=== PATIENT | female | born 2000 | race Caucasian/White ===

== ENCOUNTER 2018-01-09 10:44 | Emergency (ER) | payer BC ==
[2018-01-09 11:11] VITALS: BP 122/88
[2018-01-09] MEDS ORDERED: Ciprofloxacin 500 MG Tab ONE (11:20)
--- NOTE | 2018-01-09 11:35 | EDM.PDOC ---
ED HPI GENERAL MEDICAL PROBLEM - General Chief Complaint: General Stated Complaint: Possible UTI Time Seen by Provider: 01/09/18 11:05 Source of Information: Reports: Patient, Family History Limitations: Reports: No Limitations - History of Present Illness INITIAL COMMENTS - FREE TEXT/NARRATIVE: Patient is a 17 year old woman who started having burning, frequency and urgency with some lower abdominal pain yesterday that has persisted until today. It has gotten better drinking a lot of cranberry juice. No fever or chills, nausea or vomiting and no other complaints. Onset: Gradual Onset Date: 01/08/18 Duration: Day(s): (2), Waxing/Waning Location: Reports: Abdomen Quality: Reports: Ache, Pressure Severity: Mild Improves with: Reports: Other (Pushing fluids and cranberry juice.) Worsens with: Reports: None Context: Reports: Other Associated Symptoms: Reports: No Other Symptoms - Related Data Allergies Allergy/AdvReac Type Severity Reaction Status Date / Time No Known Allergies Allergy Verified 05/23/15 16:50 Home Meds: Home Meds l-Norgest/E.estradion-E.estrad [Seasonique 0.15-0.03-0.01] 1 each PO DAILY 05/23 [History] Past Medical History - Past Health History Medical/Surgical History: Denies Medical/Surgical History Other Respiratory History: Ida last year (14 yr old) 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 Other Musculoskeletal History: L ankle sprain (when 6 yr, 8 yr, 15 yr old) Social & Family History - Tobacco Use Smoking Status *Q: Current Every Day Smoker ED ROS GENERAL - Review of Systems Review Of Systems: See Below Constitutional: Reports: No Symptoms HEENT: Reports: No Symptoms Respiratory: Reports: No Symptoms Cardiovascular: Reports: No Symptoms Endocrine: Reports: No Symptoms GI/Abdominal: Reports: Abdominal Pain : Reports: Dysuria, Frequency, Pain Musculoskeletal: Reports: No Symptoms Skin: Reports: No Symptoms Neurological: Reports: No Symptoms Psychiatric: Reports: No Symptoms ED EXAM, GENERAL - Physical Exam Exam: See Below Exam Limited By: No Limitations General Appearance: Alert, WD/WN, No Apparent Distress Eye Exam: Bilateral Eye: EOMI, Normal Fundi, Normal Inspection, PERRL Ears: Normal External Exam, Normal Canal, Hearing Grossly Normal, Normal TMs Ear Exam: Bilateral Ear: Auricle Normal, Canal Normal, TM normal Nose: Normal Inspection, Normal Mucosa, No Blood Throat/Mouth: Normal Inspection, Normal Lips, Normal Teeth, Normal Gums, Normal Oropharynx, Normal Voice, No Airway Compromise Head: Atraumatic, Normocephalic Neck: Normal Inspection, Supple, Non-Tender, Full Range of Motion Respiratory/Chest: No Respiratory Distress, Lungs Clear, Normal Breath Sounds, No Accessory Muscle Use, Chest Non-Tender Cardiovascular: Normal Peripheral Pulses, Regular Rate, Rhythm, No Edema, No Gallop, No JVD, No Murmur, No Rub GI/Abdominal: Normal Bowel Sounds, Soft, Non-Tender, No Organomegaly, No Distention, No Abnormal Bruit, No Mass Back Exam: Normal Inspection, Full Range of Motion, NT Extremities: Normal Inspection, Normal Range of Motion, Non-Tender, Normal Capillary Refill, No Pedal Edema Neurological: Alert, Oriented, CN II-XII Intact, Normal Cognition, Normal Gait, Normal Reflexes, No Motor/Sensory Deficits Psychiatric: Normal Affect, Normal Mood Skin Exam: Warm, Dry, Intact, Normal Color, No Rash Lymphatic: No Adenopathy Course - Vital Signs Text/Narrative:: Uneventful ED course. The UA showed a UTI and she was treated with Cipro 500 mg po bid for 7 days, push fluids, cranberry juice, rest, and return to clinic or ED if worsening. Last Recorded V/S: Last Vital Signs Temp 36.9 C 01/09/18 11:14 Pulse 114 H 01/09/18 11:14 Resp 16 01/09/18 11:14 BP 122/88 01/09/18 11:14 Pulse Ox 98 01/09/18 11:14 - Orders/Labs/Meds Orders: Active Orders 24 hr Category Date Time Status CULTURE URINE [RM] Stat Lab 01/09/18 11:00 Received URINALYSIS W/MICROSCOPIC [UA W/MICROSCOPIC] [URIN] Stat Lab 01/09/18 11:09 Ordered Labs: Laboratory Tests 01/09/18 Range/Units 11:09 Urine Color Yellow Urine Appearance Slightly cloudy (CLEAR) Urine pH 7.0 (5.0-8.0) Ur Specific Bostic 1.025 (1.003-1.030) Urine Protein 100 H (NEGATIVE) mg/dL Urine Glucose (UA) Negative (NEGATIVE) mg/dL Urine Ketones Negative (NEGATIVE) mg/dL Urine Occult Blood Moderate H (NEGATIVE) Urine Nitrite Negative (NEGATIVE) Urine Bilirubin Negative (NEGATIVE) Urine Urobilinogen 0.2 (0.2-1.0) E.U./dL Ur Leukocyte Esterase Small H (NEGATIVE) Urine RBC 10-20 H /HPF Urine WBC Semi-packed H /HPF Ur Squamous Epith Cells Moderate /HPF Urine Bacteria Few /HPF Departure - Departure Time of Disposition: 11:36 Disposition: Home, Self-Care 01 Condition: Good Clinical Impression: UTI (urinary tract infection) - Discharge Information Instructions: Urinary Tract Infection, Adult Referrals: PCP,None [Primary Care Provider] - Forms: ED Department Discharge Care Plan Goals: Take medication as directed. Push fluids. Return to clinic or hospital if symptoms continue or don't improve. - My Orders Last 24 Hours: My Active Orders 01/09/18 11:00 CULTURE URINE [RM] Stat 01/09/18 11:09 URINALYSIS W/MICROSCOPIC [UA W/MICROSCOPIC] [URIN] Stat - Assessment/Plan Last 24 Hours: My Active Orders 01/09/18 11:00 CULTURE URINE [RM] Stat 01/09/18 11:09 URINALYSIS W/MICROSCOPIC [UA W/MICROSCOPIC] [URIN] Stat
== END 2018-01-09 11:35 | disposition home or self-care (01) ==
LOC: LB.ED 10:44
DX: N39.0 Urinary tract infection, site not specified (principal)
CPT/HCPCS: 81001; 87086; 87088; 87186; 99283; A9270-GY

== ENCOUNTER 2021-03-28 09:10 | Emergency (ER) | payer BC, OTHER ==
[2021-03-28 09:30] VITALS: BP 113/73; PULSE 94
--- NOTE | 2021-03-28 10:31 | EDM.PDOC ---
ED HPI GENERAL MEDICAL PROBLEM - General Chief Complaint: General Stated Complaint: wrist pain Time Seen by Provider: 03/28/21 09:30 Source of Information: Reports: Patient History Limitations: Reports: No Limitations - History of Present Illness INITIAL COMMENTS - FREE TEXT/NARRATIVE: Patient presents to the emergency department with left wrist pain, patient states that pain started about 2 days ago after she hit it on a wall while walking. Patient describes pain as sharp exacerbated by palpation overlying metacarpals, range of motion of hand, and supination and pronation of left wrist. Pain improves with compression via Isra bandage. Patient denies any other injury, numbness or tingling to left hand. Patient denies open wounds or rashes to left hand or wrist. 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 ED EXAM, GENERAL - Physical Exam Exam: See Below Exam Limited By: No Limitations General Appearance: Alert, WD/WN, No Apparent Distress Extremities: Normal Inspection, Normal Capillary Refill, Other (Range of motion of left wrist intact including pronation and supination, radial and ulnar deviation, flexion extension. Tenderness to palpation to dorsum of hand overlying metacarpals. No crepitus noted. No deformity, bruising noted. CMS intact to left hand.) Neurological: Alert, Oriented, Normal Gait Psychiatric: Normal Affect, Normal Mood Skin Exam: Warm, Dry, Intact, No Rash Course - Vital Signs Last Recorded V/S: Last Vital Signs Temp 97.7 F 03/28/21 09:29 Pulse 94 03/28/21 09:29 Resp 16 03/28/21 09:29 BP 113/73 03/28/21 09:29 Pulse Ox 98 03/28/21 09:29 - Orders/Labs/Meds Orders: Active Orders 24 hr Category Date Time Status Splinting [RC] ASDIRECTED Care 03/28/21 10:25 Ordered Wrist Comp Min 3V Lt [CR] Stat Exams 03/28/21 09:57 Taken - Radiology Interpretation Free Text/Narrative:: Wet read of three-view x-ray of left hand shows no fracture, dislocation, bony abnormality noted. Departure - Departure Time of Disposition: 10:34 Disposition: Home, Self-Care 01 Condition: Good Clinical Impression: Left wrist tendinitis - Discharge Information *PRESCRIPTION DRUG MONITORING PROGRAM REVIEWED*: Not Applicable *COPY OF PRESCRIPTION DRUG MONITORING REPORT IN PATIENT CAROLYN: Not Applicable Instructions: Tendinitis, [id number] Referrals: Martha Watson NP [Primary Care Provider] - Additional Instructions: Tylenol 1000 mg 4 times a day as needed for pain Ibuprofen 600 mg 4 times a day as needed for pain Compression therapy to include Isra wrap or wrist splint Ice for 15 to 20 minutes at a time 3-4 times a day as needed Elevation No noted fractures on x-ray, treat conservatively as it is still an injury. Sepsis Event Note (ED) - Evaluation Sepsis Screening Result: No Definite Risk - Focused Exam Vital Signs: Vital Signs Temp Pulse Resp BP Pulse Ox 03/28/21 09:29 97.7 F 94 16 113/73 98 - Problem List & Annotations (1) Left wrist tendinitis SNOMED Code(s): 663323796 Code(s): M77.8 - OTHER ENTHESOPATHIES, NOT ELSEWHERE CLASSIFIED Status: Acute Current Visit: Yes - Problem List Review Problem List Initiated/Reviewed/Updated: Yes - My Orders Last 24 Hours: My Active Orders 03/28/21 09:57 Wrist Comp Min 3V Lt [CR] Stat 03/28/21 10:25 Splinting [RC] ASDIRECTED - Assessment/Plan Last 24 Hours: My Active Orders 03/28/21 09:57 Wrist Comp Min 3V Lt [CR] Stat 03/28/21 10:25 Splinting [RC] ASDIRECTED Assessment:: Assessment: Left wrist tendinitis Plan: Rest, ice, compression, elevation therapy No noted fractures on wet read of wrist x-ray. Will treat conservatively with wrist splint and follow-up in clinic as discussed. Based on history and exam this is most likely extensor digitorum injury, which should improve over the next several days. Return to ER precautions as discuss ed.
--- NOTE | 2021-03-28 15:11 | CR ---
DATE OF SERVICE: 03/28/2021 CLINICAL DATA: INJURY Left wrist: The no acute fracture or dislocation. No lytic or blastic bone lesions. MTDD
== END 2021-03-28 10:55 | disposition home or self-care (01) ==
LOC: LB.ED 09:10
DX: M77.9 Enthesopathy, unspecified (principal); Z72.0 Tobacco use
CPT/HCPCS: 73110-LT; 99283-25

== ENCOUNTER 2021-09-21 15:50 | Emergency (ER) | payer BC ==
[2021-09-21 16:12] VITALS: BP 114/78; PULSE 99
[2021-09-21] MEDS ORDERED: Ketorolac 30 MG/ML SDV IM ONE (16:16)
[2021-09-21] MEDS ORDERED: Orphenadrine 60 MG/2 ML Inj IM ONE (17:28)
[2021-09-21] MEDS ORDERED: Cyclobenzaprine 10 MG Tab ONE (17:30)
== END 2021-09-21 17:55 | disposition home or self-care (01) ==
LOC: LB.ED 15:50
DX: M94.0 Chondrocostal junction syndrome [Tietze] (principal); Z72.0 Tobacco use; Z20.822 Contact with and (suspected) exposure to COVID-19
CPT/HCPCS: 36415; 71100; 81001; 81025; 85025; 87635; 96372; 99283; A9270; J1885; J2360; U0002